=== PATIENT | female | born 1995 | race Caucasian/White ===

== ENCOUNTER 2016-11-20 11:35 | Day surgery (SDC) | payer OTHER ==
[2016-11-20] MEDS ORDERED: DIPHENHYDRAMINE HCL 50 MG/ML VIAL ONE (11:53)
[2016-11-20] MEDS ORDERED: ONDANSETRON HCL INJ/PF 4 MG/2 ML SDV ONE (11:53)
[2016-11-20] MEDS ORDERED: NALOXONE HCL INJ/PF 0.4 MG/1 ML SDV ONE (11:53)
[2016-11-20] MEDS ORDERED: MIDAZOLAM 2 MG/2 ML INJ ONE (11:54)
[2016-11-20] MEDS ORDERED: FLUMAZENIL INJ 0.5 MG/5 ML VIAL IV ONE (11:55)
[2016-11-20] MEDS ORDERED: FENTANYL CITRATE INJ/PF 100 MCG/2 ML AMPUL ONE (11:55)
[2016-11-20] MEDS ORDERED: EPINEPHRINE INJ 1 MG/10 ML DISP.SYRIN ONE (11:55)
[2016-11-20] MEDS ORDERED: GLUCAGON,HUMAN RECOMB 1 MG INJ ONE (11:55)
[2016-11-20] MEDS: MIDAZOLAM 2 MG/2 ML INJ ONE ×3 (12:14→12:23)
--- NOTE | 2016-11-20 12:32 | Operative Report ---
Operative Report DATE OF SURGERY: 11/20/16 Operative Report: The risks benefits and alternatives of the procedure explained to the patient in detail and informed consent is obtained. A GIF Olympus video scope was inserted into the patient's mouth and hypopharynx, the esophagus is identified intubated and insufflated, the scope was then advanced through the esophagus stomach and duodenum ,retroflexion maneuver is done ,the esophagus stomach and first and second portions of the duodenum examined PREOPERATIVE DIAGNOSIS: Dyspepsia. Abdominal discomfort POSTOPERATIVE DIAGNOSIS: Gastritis status post biopsy rule out Helicobacter pylori OPERATION: EGD with biopsy SURGEON: FRANCISCO NUÑEZ ANESTHESIA: Moderate Sedation - 5 mg of Versed, 100 mcg of fentanyl. Conscious sedation monitoring time 30 minutes. TISSUE REMOVED OR ALTERED: Gastric mucosal specimen obtained to rule out Helicobacter pylori COMPLICATIONS: None. ESTIMATED BLOOD LOSS: None. INTRAOPERATIVE FINDINGS: As described above. PROCEDURE: Patient tolerated the procedure well. No immediate postprocedure complications are noted. Patient discharged in good condition. Discharge date 11/20/2016. Discharge diet: Regular. Discharge activity: Regular. 2-3 week follow-up to discuss findings. Patient is instructed to call the office or proceed to the emergency room should there be any further problems or questions. We will wait on biopsies.
[2016-11-20 14:06] VITALS: BP 101/59
== END 2016-11-20 13:50 | disposition home or self-care (01) ==
LOC: END 11:35
PROVIDERS: ATTEND Internal Medicine Gastroenterology
PROC: 0DB68ZX Excision of Stomach, Via Natural or Artificial Opening Endoscopic, Diagnostic (ICD-10-PCS; principal; 2016-11-20 12:00)
DX: K29.50 Unspecified chronic gastritis without bleeding (principal); K64.8 Other hemorrhoids; K58.9 Irritable bowel syndrome, unspecified
CPT/HCPCS: 43239; 88342 ×2; 88305 ×2; J2250; J0171; J3010; J1200; J1610; J2310; J2405; J3490

== ENCOUNTER 2016-12-15 18:12 | Emergency (ER) | payer OTHER ==
[2016-12-15] MEDS ORDERED: DISPOSABLE IM PRN (20:11)
[2016-12-15] MEDS ORDERED: METHOTREXATE SODIUM IM PRN (20:11)
[2016-12-15 20:37] LABS: ABSOLUTE EOSINOPHILS # (AUTO) 0.2 10^3/uL (0.0-0.6); ABSOLUTE LYMPHOCYTES (AUTO) 2.1 10^3/uL (0.5-4.7); ABSOLUTE MONOCYTES (AUTO) 0.6 10^3/uL (0.1-1.4); ABSOLUTE NEUT (AUTO) 5.7 10^3/uL (1.7-8.2); BASOPHILS % (AUTO) 0.3 % (0-2); EOSINOPHILS % (AUTO) 1.9 % (0-6); HEMATOCRIT 42.9 % (36.0-47.0); HEMOGLOBIN 14.1 g/dL (12.0-15.5); HGB HCT DIFFERENCE -0.6; LYMPHOCYTES % (AUTO) 24.9 % (13-45); MEAN CORPUSCULAR HEMOGLOBIN 27.7 pg (27.0-33.4); MEAN CORPUSCULAR HGB CONC 32.8 g/dL (32.0-36.0); MEAN CORPUSCULAR VOLUME 85 fl (80-97); MONOCYTES % (AUTO) 6.6 % (3-13); RED BLOOD COUNT 5.08 10^6/uL (3.72-5.28); RED CELL DISTRIBUTION WIDTH 13.7 % (11.5-14.0); SEGMENTED NEUTROPHILS % (AUTO) 66.3 % (42-78); WHITE BLOOD COUNT 8.5 10^3/uL (4.0-10.5)
[2016-12-15 20:48] LABS: ALANINE AMINOTRANSFERASE 47 U/L (9-52); ALBUMIN 4.2 g/dL (3.5-5.0); ALKALINE PHOSPHATASE 62 U/L (38-126); ANION GAP 12 (5-19); ASPARTATE AMINO TRANSFERASE 35 U/L (14-36); BILIRUBIN,DIRECT 0.3 mg/dL (0.0-0.4); BILIRUBIN,TOTAL 0.7 mg/dL (0.2-1.3); BLOOD UREA NITROGEN 13 mg/dL (7-20); CALCIUM 9.5 mg/dL (8.4-10.2); CARBON DIOXIDE 22 mmol/L (22-30); CHLORIDE 104 mmol/L (98-107); CREATININE RESULT 0.76 mg/dL (0.52-1.25); GLUCOSE 88 mg/dL (75-110); POTASSIUM 4.1 mmol/L (3.6-5.0); SODIUM 138.1 mmol/L (137-145); TOTAL PROTEIN 7.1 g/dL (6.3-8.2)
--- NOTE | 2016-12-15 21:52 | ER Document Report ---
ED GI/ - General Chief Complaint: Pelvic Pain Stated Complaint: POSSIBLE ECTOPIC Time Seen by Provider: 12/15/16 20:20 Notes: Patient is a 21-year-old female week presents with spotting during her with cramping pelvic pain. Has had 2 ultrasounds. Ultrasound on December 12 with no evidence of IUP. Today had [place] equivalent [place] 4873. Repeat sonogram with no evidence of IUP in the area suggestive of ectopic in the right adnexa without any free fluid. Patient was referred to the emergency department. Denies any other past medical history Past surgical history significant for cholecystectomy [facility] TRAVEL OUTSIDE OF THE [place] IN LAST 30 DAYS: No - Related Data Allergies/Adverse Reactions: No Known Allergies Allergy (Verified 12/15/16 18:24) Past Medical History - Social History Smoking Status: Unknown if Ever Smoked Family History: Reviewed & Not Pertinent Patient has suicidal ideation: No Patient has homicidal ideation: No - Past Medical History Cardiac Medical History: Denies: Hx Coronary Artery Disease, Hx Heart Attack, Hx Hypertension Pulmonary Medical History: Denies: Hx Asthma, Hx Bronchitis, Hx COPD, Hx Pneumonia Neurological Medical History: Denies: Hx Cerebrovascular Accident, Hx Seizures Renal/ Medical History: Denies: Hx Peritoneal Dialysis Musculoskeltal Medical History: Denies Hx Arthritis - Immunizations Hx Diphtheria, Pertussis, Tetanus Vaccination: Yes Review of Systems - Review of Systems Constitutional: No symptoms reported Cardiovascular: No symptoms reported Respiratory: No symptoms reported Gastrointestinal: No symptoms reported Genitourinary: No symptoms reported Female Genitourinary: See HPI -: Yes All other systems reviewed and negative Physical Exam - Vital signs Vitals: Temp Pulse Resp BP Pulse Ox 98.2 F 60 18 110/50 L 100 12/15/16 18:25 12/15/16 18:25 12/15/16 18:25 12/15/16 18:25 12/15/16 18:25 - Notes Notes: PHYSICAL EXAM GENERAL: Alert, interacts well. HEAD: Normocephalic, atraumatic. LUNGS: Clear to auscultation bilaterally, no wheezes, rales, or rhonchi. No respiratory distress. HEART: Regular rate and rhythm. No murmurs, gallops, or rubs. ABDOMEN: Soft, nondistended, nontender. No guarding, rebound, or rigidity.. Bowel sounds present in all 4 quadrants. female exam deferred EXTREMITIES: Moves all 4 extremities spontaneously. No edema, radial and dorsalis pedis pulses 2/4 bilaterally. No cyanosis. NEUROLOGICAL: Alert and oriented x4. Normal speech. PSYCH: Normal affect, normal mood. SKIN: Warm, dry, normal turgor. No rashes or lesions noted. Course - Re-evaluation Re-evalutation: 12/15/16 22:41 Patient is a 21-year-old female who is hemodynamic stable, no acute distress afebrile. Dr. Munroe the on-call DAM WORKER came and evaluated the patient in the emergency department please see her attached note. Patient diagnosed with ectopic . Patient has elected methotrexate of her laparoscopically. CBC and CMP as well as type and screen sent. CBC without any evidence of leukocytosis or anemia. No evidence of abnormal renal or kidney function on CMP. Patient will receive methotrexate 90 mg IM. Will be given by L&D staff. Patient will positive and will not require RhoGAM. Patient is to follow-up with [facility] on Thursday for repeat blood work. Patient is agreeable with plan. - Vital Signs Vital signs: Temp Pulse Resp BP Pulse Ox 98.2 F 64 16 108/60 99 12/15/16 23:24 12/15/16 23:24 12/15/16 23:24 12/15/16 23:24 12/15/16 23:24 - Laboratory Result Diagrams: 12/15/16 20:04 12/15/16 20:04 Discharge - Discharge Clinical Impression: Ectopic Condition: Good Disposition: HOME, SELF-CARE Instructions: Ectopic , Non-Surgical ([facility]) Additional Instructions: Please call [facility] tomorrow to schedule an appointment for blood work and to be evaluated on Thursday, December 19. Please return to the emergency department with any signs of fever, chills, abdominal pain, pelvic pain, vomiting, diarrhea. Precautions during therapy Patients should adhere to the following precautions during Methotrexate (MTX) treatment: -Avoid vaginal intercourse and new conception until hCG is undetectable. -Avoid pelvic exams during surveillance of MTX therapy due to theoretical risk of tubal rupture. -Avoid sun exposure to limit risk of MTX dermatitis. -Avoid foods and vitamins containing folic acid. -Avoid nonsteroidal antiinflammatory drugs (ibuprofen, naproxen), as the interaction with MTX may cause bone marrow suppression, aplastic anemia, or gastrointestinal toxicity. Things to expect: Pain after treatment Mild to moderate abdominal pain of short duration (one to two days) six to seven days after receiving the medication is common. The pain may be due to tubal or tubal distention from hematoma formation and can usually be controlled with acetaminophen. Nonsteroidal antiinflammatory drugs (ibuprofen, naproxen) should be avoided because a clinically significant drug interaction with Methotrexate occurs in some patients taking both drugs. Referrals: DELORES BARRY MD [ACTIVE STAFF] - 12/19/16
[2016-12-15 23:58] VITALS: BP 108/60
== END 2016-12-15 23:55 | disposition home or self-care (01) ==
LOC: ER 18:12
DX: O00.90 Unspecified ectopic pregnancy without intrauterine pregnancy (principal)
CPT/HCPCS: 99284; 96372; 86900; 86901; 36415; 86850; 85025; 80053; J9260; J3490

== ENCOUNTER → 2016-12-15 | Outpatient (CLI) | payer OTHER | LOC: OD 11:49 | PROVIDERS: ATTEND Advanced Practice Midwife | DX: O36.80X0 Pregnancy with inconclusive fetal viability, not applicable or unspecified (principal) | CPT/HCPCS: 36415; 84702 ==

== ENCOUNTER 2017-05-20 09:26 | Day surgery (SDC) | payer OTHER ==
[~2017-05-20 09:26] MED LIST: MIDAZOLAM 2 MG/2 ML INJ ONE; ONDANSETRON HCL INJ/PF 4 MG/2 ML SDV ONE; PROPOFOL INJ 200 MG/20 ML VIAL IV ONE
--- NOTE | 2017-05-20 12:20 | Operative Report ---
Operative Report DATE OF SURGERY: 05/20/17 Operative Report: The risks, benefits and alternatives of the procedure including risks of bleeding, perforation requiring surgery are explained to the patient in detail and informed consent was obtained. The patient is brought to the operating room and placed in the left, lateral decubital position. A rectal examination is done which did not reveal any masses, tears or fissures. An Olympus videoscope was inserted into the patient's rectum. The scope was then carefully advanced all the way to the cecum. The patient does have a redundant colon. The cecum is identified by the usual anatomical landmarks including the ileocecal valve as well as the appendiceal office. Photodocumentation was obtained. Prep is good. Scope was then sequentially pulled back via the various segments of the colon including the ascending colon, hepatic flexure, transverse colon, splenic flexure, descending colon finding to the rectosigmoid portions of the colon. Retroflexion maneuver is performed. PREOPERATIVE DIAGNOSIS: Blood in stool POSTOPERATIVE DIAGNOSIS: Mild right-sided inflammation status post biopsy rule out lymphocytic colitis OPERATION: Colonoscopy with biopsy SURGEON: FRANCISCO NUÑEZ ANESTHESIA: LMAC TISSUE REMOVED OR ALTERED: Mucosal specimen obtained COMPLICATIONS: None. ESTIMATED BLOOD LOSS: None. INTRAOPERATIVE FINDINGS: As described above. PROCEDURE: Patient tolerated procedure well. No immediate postprocedure complications are noted. Patient discharged in good condition. Discharge date 05/20/2017. Discharge diet: Regular. Discharge activity: Regular. 2-3 week follow-up to discuss findings. Patient is instructed to call the office or proceed to the emergency room should there be any further problems or questions. We will wait on pathology.
[2017-05-20] MEDS ORDERED: ACETAMINOPHEN 100 ML IV ONE (12:30)
[2017-05-20 14:15] VITALS: BP 110/48
== END 2017-05-20 13:50 | disposition home or self-care (01) ==
LOC: OROUT 09:26
PROVIDERS: ATTEND Internal Medicine Gastroenterology
PROC: 0DBF8ZX Excision of Right Large Intestine, Via Natural or Artificial Opening Endoscopic, Diagnostic (ICD-10-PCS; principal; 2017-05-20 11:30)
DX: K52.9 Noninfective gastroenteritis and colitis, unspecified (principal); K92.1 Melena
CPT/HCPCS: 45380; 81025; 88305 ×2; 88313 ×2; J2250; J2405; J2704; J0131; 810

== ENCOUNTER 2018-06-15 20:06 | Emergency (ER) | payer SELFPAY ==
[2018-06-15 20:13] VITALS: BP 126/73
[2018-06-15] MEDS ORDERED: PREDNISONE 20 MG TABLET PO ONE (20:25)
[2018-06-15] MEDS ORDERED: IPRATROPIUM/ALBUTEROL 0.5-2.5 MG/3 ML AMPUL NEB ONE (20:25)
--- NOTE | 2018-06-15 20:31 | ER Document Report ---
HPI - HPI Time Seen by Provider: 06/15/18 20:19 Pain Level: 3 Notes: Patient is an otherwise healthy 23-year-old female who presents to the emergency department today with complaints of cough that is been ongoing for 2 months. She reports it is a dry cough. She states that she has dyspnea on exertion. She also states that she has had some upper respiratory symptoms such as congestion intermittently over the last 2 months with low-grade temps. She reports size time she has had is 100 but states this was almost 1 month ago. Patient reports she saw a provider at an urgent care who placed her on antibiotics she does not know what this is. Patient denies any past medical or surgical history. She does not take any daily medications. She denies any chest pain, denies the use of any oral contraceptives, denies any recent travel. - EENT EENT: REPORTS: Sore Throat - RESPIRATORY Respiratory: REPORTS: Trouble Breathing, Coughing Past Medical History - Social History Smoking Status: Never Smoker Chew tobacco use (# tins/day): No Frequency of alcohol use: Occasional Drug Abuse: None Family History: Reviewed & Not Pertinent Patient has suicidal ideation: No Patient has homicidal ideation: No - Past Medical History Cardiac Medical History: Denies: Hx Coronary Artery Disease, Hx Heart Attack, Hx Hypertension Pulmonary Medical History: Denies: Hx Asthma, Hx Bronchitis, Hx COPD, Hx Pneumonia Neurological Medical History: Denies: Hx Cerebrovascular Accident, Hx Seizures Renal/ Medical History: Denies: Hx Peritoneal Dialysis Musculoskeletal Medical History: Denies Hx Arthritis - Immunizations Hx Diphtheria, Pertussis, Tetanus Vaccination: Yes Vertical Provider Document - INFECTION CONTROL TRAVEL OUTSIDE OF THE [place] IN LAST 30 DAYS: No Course - Re-evaluation Re-evalutation: Chest x-rays negative for any acute findings to include infiltrates. Patient reports she is feeling much improved after administration of DuoNeb. PERC negative. Patient's physical examination is unremarkable and patient is ready to be discharged home. - Vital Signs Vital signs: Temp Pulse Resp BP Pulse Ox 98.0 F 81 20 126/73 H 100 06/15/18 20:11 06/15/18 20:11 06/15/18 20:11 06/15/18 20:11 06/15/18 20:11 Discharge - Discharge Clinical Impression: Cough Upper respiratory infection Qualifiers: URI type: unspecified URI Qualified Code(s): J06.9 - Acute upper respiratory infection, unspecified Disposition: HOME, SELF-CARE Additional Instructions: UPPER RESPIRATORY ILLNESS: You have a viral infection of the respiratory passages -- a "cold." This common infection causes nasal congestion, drainage, and often sore throat and cough. It is highly contagious. The disease usually lasts about 10 to 14 days. There is no "cure" for the viral infection -- it must run its course. If there is a complication, such as bacterial infection in the nose, sinuses, middle ear, or bronchial tubes, antibiotics may be required. The antibiotics won't affect the virus. Drink plenty of fluids. A humidifier may help. An expectorant medication or decongestant may make you more comfortable. Use acetaminophen or ibuprofen for fever or aches. See the doctor if fever persists over two days, if there is any significant worsening of your symptoms, or if you simply fail to improve as expected. BRONCHOSPASM: You have tightness in the bronchial tubes, called bronchospasm. This often occurs with bronchial infections. Allergies, inhaled chemicals, and polluted or cold air can also provoke bronchospasm. It's more likely in patients with asthma in the family. Emergency treatment of bronchospasm may include adrenaline shots or bronchodilator aerosol. You may feel lightheaded and have a rapid pulse for an hour or two. Rest and get plenty of fluids. At home, we'll treat you with a bronchodilator inhaler. Antibiotics and corticosteroids may be required for some patients. Until you recover, avoid chemical fumes, dusts, pollens, and exercising in very cold or dry air. If you smoke, stop now!! If you develop a fever, increased wheezing, chest pain, or severe shortness of breath, you should contact the doctor immediately. DECONGESTANT MEDICATION: A decongestant medicine has been prescribed. Often this medicine is combined in the same tablet with an antihistamine or expectorant. This type of medicine is helpful in treating a bad cold or sinus condition, as well as in treatment of the nasal congestion of hay fever. It is not of much benefit for lung infections. Decongestant medicines are related to stimulants. They can cause an increase in blood pressure and heart rate. Persons with heart disease and high blood pressure should not take decongestants without discussing this with the physician. If you develop palpitations, chest pain, headache, or tremors, stop the medicine and consult your physician. COUGH-SUPPRESSANT & EXPECTORANT MEDICATION: You are to use a cough medication as needed for relief of symptoms. This medicine is a combination of an expectorant (to make the mucous thinner and more easily "coughed up") and a cough suppressant (to reduce the frequency of coughing). The cough-suppressant medicine is related to narcotics. You may experience mild nausea and sleepiness. Some patients who are very sensitive to narcotics may have stomach pain from this medicine. Taking the medicine with food reduces these side effects. Do not drive or work with machinery until you know how this medicine affects you. The expectorant should have no side effects. Iodine-containing expectorants (such as organidin) should not be taken by persons with active thyroid disease unless approved by your doctor. Call the doctor if you develop shortness of breath, hives, rash, itching, lightheadedness, or severe nausea and vomiting. INHALED BRONCHODILATORS: You have received a treatment of and/or prescription for an inhaled bronchodilator -- a medication which stimulates the airways in the lung to dilate. This improves the flow of air in asthma, bronchitis, and emphysema. These medicines have some similarity to adrenaline, and can cause similar side effects: shakiness, racing heart, and a sense of nervousness. These side effects decrease with time. Contact your doctor if these side effects are severe. Do not over-use the medicine. Too-frequent use of the inhaler may make it ineffective. Call your doctor if the inhaler is not controlling your symptoms at the prescribed doses. STEROID MEDICATION: You have been given an injection of or oral medicine of the cortis one/steroid class. This medication is used to control inflammation or allergy. Juan Ramon t is usually only given for a short period of time, until the acute process subsides. There are usually no side effects from short-term use of cortisone-like medications. Some persons feel an increased sense of well-being and are not sleepy at bedtime. Long-term use of cortisone medications is best avoided, unless required for a severe condition. If your condition does not remit, or relapses after the course of corticosteroid medication, you should consult your physician. USE OF ACETAMINOPHEN (Tylenol): Acetaminophen may be taken for pain relief or fever control. It's much safer than aspirin, offering a wider range of "safe" dosages. It is safe during . Some brand names are Tylenol, Panadol, Datril, Anacin 3, Tempra, and Liquiprin. Acetaminophen can be repeated every four hours. The following are maximum recommended dosages: >89 pounds or adults 650 mg to 900 mg Acetaminophen can be repeated every four hours. Maximum dose not to exceed 4000 mg a day. SMOKING: If you smoke, you should stop smoking. The tar and chemicals in cigarette smoke are harmful. Smoking has been shown to cause: emphysema chronic bronchitis lung cancer mouth and throat cancer stomach and pancreas cancer premature aging defects In addition, smoking increases ear and lung infections in children of smokers. FOLLOW-UP CARE: If you have been referred to a physician for follow-up care, call the [facility] office for an appointment as you were instructed or within the next two days. If you experience worsening or a significant change in your symptoms, notify the physician immediately or return to the Emergency Department at any time for re-evaluation. Please drink plenty of fluids. Your chest x-ray was negative. There is no evidence of any pneumonia. Your symptoms are most likely being caused by a viral upper respiratory infection. Please take all medications as prescribed. Do not take the Phenergan with codeine if you are going to be driving as it does have a narcotic in it and may make you sleepy. Prescriptions: RX: Codeine/Promethazine HCl [Promethazine-Codeine Syrup] 10 ml PO QHS #100 ml Benzonatate [Tessalon Perles 100 mg Capsule] 100 mg PO Q8HP PRN #40 capsule PRN Reason: RX: Prednisone [Deltasone 20 mg Tablet] 3 tab PO DAILY 4 Days #12 tablet
--- NOTE | 2018-06-15 20:54 | RADIOLOGY REPORT (SQ) ---
EXAM DESCRIPTION: CHEST 2 VIEWS COMPLETED DATE/TIME: 06/15/2018 8:34 pm REASON FOR STUDY: cough x2 months COMPARISON: None. EXAM PARAMETERS: NUMBER OF VIEWS: two views TECHNIQUE: Digital Frontal and Lateral radiographic views of the chest acquired. RADIATION DOSE: NA LIMITATIONS: none FINDINGS: LUNGS AND PLEURA: No opacities, masses or pneumothorax. No pleural effusion. MEDIASTINUM AND HILAR STRUCTURES: No masses or contour abnormalities. HEART AND VASCULAR STRUCTURES: Heart normal size. No evidence for failure. BONES: No acute findings. HARDWARE: None in the chest. OTHER: No other significant finding. IMPRESSION: NO ACUTE RADIOGRAPHIC FINDING IN THE CHEST. TECHNICAL DOCUMENTATION: JOB ID: [id number] [employer]- All Rights Reserved Reading location - IP/workstation name: [email or web address]
[2018-06-15] MEDS ORDERED: ALBUTEROL SULFATE HFA (90 MCG/PUFF) 8 GM MDI (1 MDI/ER DISP) IH ONE (21:09)
[2018-06-15] MEDS ORDERED: BENZONATATE 100 MG CAPSULE PO ONE (21:09)
== END 2018-06-15 21:17 | disposition home or self-care (01) ==
LOC: ER 20:06
DX: J06.9 Acute upper respiratory infection, unspecified (principal)
CPT/HCPCS: 94640; 99283; 71046; J7512; J3490; J7620

== ENCOUNTER → 2018-07-13 | Outpatient (CLI) | payer SELFPAY ==
[2018-07-13 17:21] LABS: BACTERIA (WET MOUNT) 3+ BACTERIA SEEN; EPITHELIALS (WET MOUNT) 4+ EPITHELIALS SEEN; T.VAGINALIS (WET MOUNT) NO TRICHOMONAS SEEN; WBCS (WET MOUNT) 4+ WBCS SEEN; YEAST (WET MOUNT) NO YEAST SEEN
== END ==
LOC: LAB 16:51
PROVIDERS: ATTEND Nurse Practitioner Acute Care
DX: N89.8 Other specified noninflammatory disorders of vagina (principal); R30.0 Dysuria
CPT/HCPCS: 87086; 87088; 87210

== ENCOUNTER → 2019-01-31 | Outpatient (CLI) | payer SELFPAY ==
[2019-01-31 13:39] LABS: BACTERIA (WET MOUNT) 3+ BACTERIA SEEN; EPITHELIALS (WET MOUNT) 3+ EPITHELIALS SEEN; RBCS (WET MOUNT) 1+ RBCS SEEN; T.VAGINALIS (WET MOUNT) NO TRICHOMONAS SEEN; WBCS (WET MOUNT) 2+ WBCS SEEN; YEAST (WET MOUNT) NO YEAST SEEN
[2019-01-31 15:24] LABS: CHLAM PCR DETECTED (NOT DETECT)
== END ==
LOC: LAB 13:29
PROVIDERS: ATTEND Nurse Practitioner Acute Care
DX: N89.8 Other specified noninflammatory disorders of vagina (principal); R30.0 Dysuria
CPT/HCPCS: 87086; 87210; 87491; 87591

== ENCOUNTER → 2019-05-31 | Outpatient (CLI) | payer SELFPAY ==
[2019-05-31 12:08] LABS: BACTERIA (WET MOUNT) 3+ BACTERIA SEEN; EPITHELIALS (WET MOUNT) 4+ EPITHELIALS SEEN; T.VAGINALIS (WET MOUNT) NO TRICHOMONAS SEEN; WBCS (WET MOUNT) NO WBCS SEEN; YEAST (WET MOUNT) NO YEAST SEEN
== END ==
LOC: LAB 11:58
PROVIDERS: ATTEND Nurse Practitioner Acute Care
DX: R30.0 Dysuria (principal)
CPT/HCPCS: 87210

== ENCOUNTER 2019-12-31 13:55 | Emergency (ER) | payer SELFPAY ==
--- NOTE | 2019-12-31 15:07 | ER Document Report ---
HPI - HPI Patient complains to provider of: Fall Time Seen by Provider: 12/31/19 15:05 Onset: Last week Onset/Duration: Sudden Quality of pain: Achy Pain Level: 5 Context: 24-year-old female who is drinking last week and had a fall which she does not remember very well but she struck the side of her face at the mandible she has discomfort when she chews swallows eats and has some swelling to the affected area associated with a severe headache. Associated Symptoms: None Past Medical History - Social History Smoking Status: Never Smoker Chew tobacco use (# tins/day): No Frequency of alcohol use: Occasional Drug Abuse: None Family History: Reviewed & Not Pertinent - Past Medical History Cardiac Medical History: Denies: Hx Coronary Artery Disease, Hx Heart Attack, Hx Hypertension Pulmonary Medical History: Denies: Hx Asthma, Hx Bronchitis, Hx COPD, Hx Pneumonia Neurological Medical History: Denies: Hx Cerebrovascular Accident, Hx Seizures Renal/ Medical History: Denies: Hx Peritoneal Dialysis Musculoskeletal Medical History: Denies Hx Arthritis - Immunizations Hx Diphtheria, Pertussis, Tetanus Vaccination: Yes Vertical Provider Document - CONSTITUTIONAL Agree With Documented VS: Yes - INFECTION CONTROL TRAVEL OUTSIDE OF THE [place] IN LAST 30 DAYS: No - HEENT HEENT: Conjuctival Injection, Normocephalic, PERRLA Notes: Patient does have tenderness and inflammation to the left lateral jawline. Course - Re-evaluation Re-evalutation: 12/31/19 17:01 Tenderness and inflammation to the left lateral jawline she is able to bite depressive tongue depressor on the left the right in the midline. CT of head and facial bones was performed. - Vital Signs Vital signs: Temp Pulse Resp BP Pulse Ox 98.7 F 71 16 107/68 98 12/31/19 15:04 12/31/19 14:22 12/31/19 14:22 12/31/19 14:22 12/31/19 14:22 - Diagnostic Test Radiology results interpreted by me: 12/31/19 17:[address] 12/31/19 15:05 IMPRESSION: No acute intracranial findings. EVIDENCE OF ACUTE STROKE: NO. Facial Bones CT 12/31/19 15:06 IMPRESSION: No acute sinus disease or other acute findings of the face. Discharge - Discharge Clinical Impression: Contusion of mandibular joint area Qualifiers: Encounter type: initial encounter Qualified Code(s): S00.83XA - Contusion of other part of head, initial encounter Condition: Good Disposition: HOME, SELF-CARE Instructions: Contusion ([facility]) Additional Instructions: Ice to affected area 4-5 times a day. Must follow-up PMD in 2 to 3 days. Motrin for inflammation. Ultram for pain. Follow-up with private doctor in 1 to 2 days for final radiology readings please return to the emergency room for any change worsening condition. Follow up with private M.D. for all other routine health care needs. Prescriptions: Ibuprofen [Motrin 600 Mg Tablet] 600 mg PO TID #15 tablet Tramadol HCl [Ultram 50 mg Tablet] 50 mg PO ASDIR PRN #20 tablet PRN Reason: Referrals: NIRALI SHARMA NP [Primary Care Provider] - Follow up as needed
--- NOTE | 2019-12-31 16:42 | RADIOLOGY REPORT (SQ) ---
EXAM DESCRIPTION: CT FACIAL AREA WITHOUT IMAGES COMPLETED DATE/TIME: 12/31/2019 4:22 pm REASON FOR STUDY: pain COMPARISON: None. TECHNIQUE: Noncontrasted images through the facial bones and orbits windowed for bone and soft tissu e. Additional coronal and sagittal reconstructed images reviewed. All images stored on PACS. All CT scanners at this facility use dose modulation, iterative reconstruction, and/or weight based d osing when appropriate to reduce radiation dose to as low as reasonably achievable (ALARA). [facility]: Dose Right [facility]: CareDose [facility]: Dose Right [facility]: Teradose 4D [facility]: [employer] RADIATION DOSE: CT Rad equipment meets quality standard of care and radiation dose reduction techniq ues were employed. CTDIvol: 30.4 mGy. DLP: 591 mGy-cm. mGy. LIMITATIONS: None. FINDINGS: FACIAL BONES: No fracture or bone lesion. ORBITS: Intact. No fracture. Symmetric intact globes and retroorbital soft tissues. PARANASAL SINUSES: Clear. No significant mucosal thickening, mass or fluid. No nasal polyps. Maxill dionisio sinus outlets are patent. SOFT TISSUES: No mass or edema. INFERIOR BRAIN: Limited view. No acute findings. OTHER: No other significant finding. IMPRESSION: No acute sinus disease or other acute findings of the face. TECHNICAL DOCUMENTATION: JOB ID: [id number] Quality ID # [id number]: Final reports with documentation of one or more dose reduction techniques (e.g., Au tomated exposure control, adjustment of the mA and/or kV according to patient size, use of iterative reconstruction technique) 2010 [employer]- All Rights Reserved Reading location - IP/workstation name: [email or web address]
--- NOTE | 2019-12-31 16:42 | RADIOLOGY REPORT (SQ) ---
EXAM DESCRIPTION: CT HEAD WITHOUT IMAGES COMPLETED DATE/TIME: 12/31/2019 4:22 pm REASON FOR STUDY: pain COMPARISON: None. TECHNIQUE: Axial images acquired through the brain without intravenous contrast. Images reviewed wi th bone, brain and subdural windows. Additional sagittal and coronal reconstructions were generated. Images stored on PACS. All CT scanners at this facility use dose modulation, iterative reconstruction, and/or weight based d osing when appropriate to reduce radiation dose to as low as reasonably achievable (ALARA). [facility]: Dose Right [facility]: CareDose [facility]: Dose Right [facility]: Teradose 4D [facility]: [employer] RADIATION DOSE: CT Rad equipment meets quality standard of care and radiation dose reduction techniq ues were employed. CTDIvol: 53.2 mGy. DLP: 884 mGy-cm. mGy. LIMITATIONS: None. FINDINGS: VENTRICLES: Normal size and contour. CEREBRUM: No masses. No hemorrhage. No midline shift. No evidence for acute infarction. Normal gra y/white matter differentiation. No areas of low density in the white matter. CEREBELLUM: No masses. No hemorrhage. No alteration of density. No evidence for acute infarction. EXTRAAXIAL SPACES: No fluid collections. No masses. ORBITS AND GLOBE: No intra- or extraconal masses. Normal contour of globe without masses. CALVARIUM: No fracture. PARANASAL SINUSES: No fluid or mucosal thickening. SOFT TISSUES: No mass or hematoma. OTHER: No other significant finding. IMPRESSION: No acute intracranial findings. EVIDENCE OF ACUTE STROKE: NO. COMMENT: Quality ID # [id number]: Final reports with documentation of one or more dose reduction techniques (e.g., Automated exposure control, adjustment of the mA and/or kV according to patient size, use of iterative reconstruction technique) TECHNICAL DOCUMENTATION: JOB ID: [id number] 2010 [employer]- All Rights Reserved Reading location - IP/workstation name: [email or web address]
[2019-12-31 17:17] VITALS: BP 108/52
== END 2019-12-31 17:16 | disposition home or self-care (01) ==
LOC: ER 13:55
DX: S00.83XA Contusion of other part of head, initial encounter (principal); R68.84 Jaw pain; R51 Headache; W18.30XA Fall on same level, unspecified, initial encounter
CPT/HCPCS: 70450; 70486; 99283